=== PATIENT | female | born 1960 | race African-American/Black ===

== ENCOUNTER 2018-03-13 07:30 | Day surgery (SDC) | payer MEDICAID ==
[~2018-03-13] VITALS: Ht 193.1 cm; Wt 103.0 kg
[2018-03-13] VITALS (12 sets, daily range): BP systolic 117–148; BP diastolic 66–79; PULSE 45–65; TEMP 98.7–99.1
[2018-03-13 08:23] LABS: HEMATOCRIT 40.2 % (37.0-47.0); HEMOGLOBIN 12.9 g/dl (12.5-16.0); MEAN CELL VOLUME 96 fl (80.0-100.0); MEAN CORPUSCULAR HEMOGLOBIN 31 pg (27.0-31.0); MEAN CORPUSCULAR HGB CONC 32 g/dl (33.0-37.0); MEAN PLATELET VOLUME 10.4 fl (7.4-10.4); PLATELET COUNT 254 K/mm3 (130-400); RED BLOOD COUNT 4.18 M/mm3 (4.10-5.30); REDCELL DISTRIBUTION WIDTH-CV 12.9 % (11.5-14.5)
[2018-03-13] MEDS ORDERED: CELEXA40 MG PO (08:23)
[2018-03-13] MEDS ORDERED: PRILOSEC 20MG20 MG PO (08:23)
[2018-03-13] MEDS ORDERED: SINGULAIR 110 MG/TAB PO (08:24)
[2018-03-13] MEDS ORDERED: WELLBUTRIN XL300 M1 PO (08:26)
[2018-03-13] MEDS ORDERED: ASPIRIN E.C. 8181 MG PO (08:26)
[2018-03-13] MEDS ORDERED: VITAMIND3 5000 PO (08:27)
[2018-03-13] MEDS ORDERED: TOPROL XL 25MG25 MG PO (08:27)
[2018-03-13] MEDS ORDERED: BUSPAR 30MG30 MG/TAB PO (08:28)
[2018-03-13] MEDS ORDERED: ACTOS 45MG45 MG/TAB PO (08:29)
[2018-03-13] MEDS ORDERED: CLARITIN 1010 MG/TAB PO (08:30)
[2018-03-13] MEDS ORDERED: GLUCOPHAGE1000 MG PO (08:30)
[2018-03-13] MEDS ORDERED: LASIX 20MG TABL20 MG PO (08:31)
[2018-03-13] MEDS ORDERED: VESICARE10 MG PO (08:31)
[2018-03-13] MEDS ORDERED: LANTUS100 U/ML SQ (08:32)
[2018-03-13] MEDS ORDERED: CANA300T PO (08:34)
[2018-03-13 08:48] LABS: INR 1.1 (0.8-3.0); PROTHROMBIN TIME 12.6 SECONDS (9.7-12.8)
[2018-03-13 09:33] LABS: CALCIUM 9.2 mg/dL (8.4-10.2); CREATININE, serum 0.96 mg/dL (0.52-1.25); POTASSIUM 3.8 mmol/L (3.4-5.0)
== END 2018-03-13 16:35 | disposition home or self-care (01) ==
LOC: COL.CAR 07:30
PROVIDERS: Internal Medicine Cardiovascular Disease
DX: R94.39 Abnormal result of other cardiovascular function study (principal); E66.01 Morbid (severe) obesity due to excess calories; R06.02 Shortness of breath; I10 Essential (primary) hypertension; E11.9 Type 2 diabetes mellitus without complications; E78.2 Mixed hyperlipidemia; Z83.3 Family history of diabetes mellitus; Z87.891 Personal history of nicotine dependence; Z79.82 Long term (current) use of aspirin; Z79.4 Long term (current) use of insulin; Z82.49 Family history of ischemic heart disease and other diseases of the circulatory system; Z68.42 Body mass index [BMI] 45.0-49.9, adult
CPT/HCPCS: J1644; J2250; J3010; Q9967

== ENCOUNTER 2020-03-23 11:30 | Outpatient (RCR) | payer MEDICAID ==
[~2020-03-23 11:30] MED LIST: ACTOS 45MG45 MG/TAB PO; ASPIRIN E.C. 8181 MG PO; BUSPAR 30MG30 MG/TAB PO; CANA300T PO; CELEXA40 MG PO; CLARITIN 1010 MG/TAB PO; GLUCOPHAGE1000 MG PO; LANTUS100 U/ML SQ; LASIX 20MG TABL20 MG PO; PRILOSEC 20MG20 MG PO; SINGULAIR 110 MG/TAB PO; TOPROL XL 25MG25 MG PO; VESICARE10 MG PO; VITAMIND3 5000 PO; WELLBUTRIN XL300 M1 PO
== END 2020-04-06 | disposition home or self-care (01) ==
LOC: WSC
DX: G62.9 Polyneuropathy, unspecified (principal); M21.372 Foot drop, left foot

== ENCOUNTER 2020-08-18 08:35 | Day surgery (SDC) | payer MEDICAID ==
[~2020-08-18] VITALS: Ht 162.6 cm; Wt 75.9 kg
[2020-08-18 10:37] VITALS: BP 127/75; PULSE 52; TEMP 97.8
[2020-08-18] MEDS ORDERED: TYLENOL 325MG325 MG PO (11:03)
[2020-08-18] MEDS ORDERED: NORVASC 5MG5 MG/TAB PO (11:03)
[2020-08-18] MEDS ORDERED: LIPITOR20 MG PO (11:04)
[2020-08-18] MEDS ORDERED: COLACE 100100 MG/CAP PO (11:05)
[2020-08-18] MEDS ORDERED: FOLIC ACID 11 MG/TA1 PO (11:06)
[2020-08-18] MEDS ORDERED: ATARAX 25MG25 MG/TAB PO (11:08)
[2020-08-18] MEDS ORDERED: TOPROL XL 50MG50 MG PO (11:09)
[2020-08-18] MEDS ORDERED: GOOD NEIGH1200 MG/15 PO (11:13)
[2020-08-18] MEDS ORDERED: VESICARE 5MG5 MG PO (11:16)
[2020-08-18 12:07] VITALS: BP 117/73; PULSE 51; TEMP 97.1
--- NOTE | 2020-08-18 12:07 | NUR ---
PT TO [facility] VIA CART, ASSISTED TO RECLINER WITH 2 NURSES TO HELP PIVOT. PT IS ALERT AND ORIENATED, X3. NO C/O PAIN. TAKES POP AND CRACKERS, CALL LIGHT IN REACH
[2020-08-18 12:20] VITALS: BP 128/72; PULSE 44
[2020-08-18 12:35] VITALS: BP 130/78; PULSE 47
--- NOTE | 2020-08-18 12:35 | NUR ---
DR MACIEL SEE PT, DISCUSSED POLYPS WITH PT. REVIEWED DISCHARGE INST. WITH PT ON MODERATE SEDATION, ACTIVITY AND FOLLOWUP WITH VERBAL UNDERSTANDING.
[2020-08-18 12:50] VITALS: BP 133/67; PULSE 47
--- NOTE | 2020-08-18 12:50 | NUR ---
IV D'CD INTACT, ASSISTED PT IN DRESSING AND UP IN OWN W/C, DISCHARGED VIA W/C TO [place] WITH DRUG PURCHASER AT 1300
== END 2020-08-18 13:00 | disposition home or self-care (01) ==
LOC: SDCO 08:35
DX: Z12.11 Encounter for screening for malignant neoplasm of colon (principal); D12.5 Benign neoplasm of sigmoid colon; D12.2 Benign neoplasm of ascending colon; K64.1 Second degree hemorrhoids; I10 Essential (primary) hypertension; F32.9 Major depressive disorder, single episode, unspecified; F41.9 Anxiety disorder, unspecified; Z20.822 Contact with and (suspected) exposure to COVID-19; F17.210 Nicotine dependence, cigarettes, uncomplicated; Z91.048 Other nonmedicinal substance allergy status; Z79.82 Long term (current) use of aspirin; Z99.3 Dependence on wheelchair
CPT/HCPCS: J2704; J7030